=== PATIENT | female | born 1995 | race Caucasian/White ===

== ENCOUNTER 2019-01-21 19:40 | Emergency (ER) | payer OTHER ==
--- NOTE | 2019-01-21 19:46 | PDOC ---
Rapid Medical Evaluation Chief Complaint: Diarrhea Time Seen by Provider: 01/21/19 19:44 Medical Evaluation: Allergies Allergy/AdvReac Type Severity Reaction Status Date / Time No Known Allergies Allergy Verified 04/19/16 19:28 01/21/19 19:44 I have performed a brief in-person evaluation of this patient. The patient presents with a chief complaint of: diarrhea x2 days. 29wks Pertinent physical exam findings: gravid abdomen. dry MM. I have ordered the following: labs, urine The patient will proceed to the ED for further evaluation. 01/21/19 19:45 Discharge Disposition - Diagnosis Diarrhea - Referrals - Patient Instructions - Post Discharge Activity
[2019-01-21 19:47] VITALS: BMI 34.3
[2019-01-21] MEDS ORDERED: LACTATED RINGERS SOLUTION 1,000 ML/1,000 ML INFUS.BAG IV SCH (20:00)
--- NOTE | 2019-01-21 21:06 | PDOC ---
History of Present Illness - General Chief Complaint: Diarrhea Stated Complaint: DIARRHEA Time Seen by Provider: 01/21/19 19:44 History Source: Patient - History of Present Illness Initial Comments: 01/21/19 21:05 23 year old 29 weeks v female c/o watery nonbloody diarrhea x 2 days and today had pelvic pain and pressure to buttocks at 4pm. denies pain at this time. denies feeling contractions, urinary symptoms, abdominal pain, fever/ chills, vomiting. no pmhx Past History - Past Medical History Allergies/Adverse Reactions: Allergies Allergy/AdvReac Type Severity Reaction Status Date / Time No Known Allergies Allergy Verified 01/21/19 19:46 Home Medications: Ambulatory Orders Diphenhydramine HCl [Benadryl -] 25 mg PO Q6H PRN #18 capsule 04/19/16 Asthma: No Cancer: No Cardiac Disorders: No COPD: No Diabetes: No HTN: No Seizures: No Thyroid Disease: No - Suicide/Smoking/Psychosocial Hx Smoking History: Never smoked Have you smoked in the past 12 months: No Number of Cigarettes Smoked Daily: 0 Information on smoking cessation initiated: No Hx Alcohol Use: No Drug/Substance Use Hx: No Substance Use Type: None Hx Substance Use Treatment: No Review of Systems - Review of Systems Able to Perform ROS?: Yes Is the patient limited Syriac proficient: No Constitutional: No: Symptoms Reported, See HPI, Chills, Diaphoresis, Fever, Loss of Appetite, Malaise, Night Sweats, Weakness, Weight Stable, Unintentional Wgt. Loss, Unexplained wgt Loss, Other ABD/GI: Yes: Diarrhea. No: Symptoms Reported, See HPI, Abdominal Distended, Abd. Pain w/ defecation, Blood Streaked Bowels, Constipated, Difficulty Swallowing, Nausea, Poor Appetite, Poor Fluid Intake, Rectal Bleeding, Vomiting , Indigestion, Abdominal cramping, Tarry Stools, Other : Yes: Other (pelvic cramping) *Physical Exam - Vital Signs Last Vital Signs Temp Pulse Resp BP Pulse Ox 98.4 F 91 H 18 121/76 100 01/21/19 19:44 01/21/19 19:44 01/21/19 19:44 01/21/19 19:44 01/21/19 19:44 - Physical Exam General Appearance: Yes: Appropriately Dressed Respiratory/Chest: positive: Lungs Clear, Normal Breath Sounds Cardiovascular: positive: Regular Rhythm, Regular Rate Musculoskeletal: positive: Normal Inspection Extremity: positive: Normal Capillary Refill, Normal Inspection, Normal Range of Motion Integumentary: positive: Other (dry mucosa) Neurologic: positive: Fully Oriented, Alert ED Treatment Course - LABORATORY CBC & Chemistry Diagram: 01/21/19 21:25 01/21/19 21:25 Progress Note - Progress Note Progress Note: A: Diarrhea/ dehydration P: CBC CMP IVF will send to L&D for clearance. Medical Decision Making - Medical Decision Making 01/22/19 00:00 patient cleared for d/c by L&D. patient now feels better.s/p IVF. will d/c home. *DC/Admit/Observation/Transfer Diagnosis at time of Disposition: Pelvic pain affecting in second trimester, antepartum Diarrhea Qualifiers: Diarrhea type: unspecified type Qualified Code(s): R19.7 - Diarrhea, unspecified - Discharge Dispostion Disposition: HOME - Referrals Referrals: Montez Mahmood MD [Staff Physician] - - Patient Instructions Printed Discharge Instructions: Diarrhea Additional Instructions: drink plenty of fluids including gatorade. Follow up with your provider as scheduled. return to labor and delivery if : you start to have contractions Your water breaks You have any vaginal bleeding You do not feel the baby moving - Post Discharge Activity Forms/Work/School Notes: Back to Work
[2019-01-21 21:27] LABS: PH,URINE 6.5 (5.0-8.0); URINE APPEARANCE CLEAR; URINE BILIRUBIN NEGATIVE (NEGATIVE); URINE COLOR YELLOW; URINE GLUCOSE (UA) NEGATIVE (NEGATIVE); URINE KETONE NEGATIVE (NEGATIVE); URINE LEUK ESTERASE NEGATIVE (NEGATIVE); URINE NITRITE NEGATIVE (NEGATIVE); URINE PROTEIN NEGATIVE (NEGATIVE); URINE UROBILINOGEN 0.2 mg/dL (0.2-1.0)
[2019-01-21 21:44] LABS: BASO % 0.6 % (0-2.0); EOS % 1.4 % (0-4.5); HEMOGLOBIN 11.7 GM/dL (10.7-15.3); LYMPH % 19.7 % (8-40); MCHC 33.4 g/dl (32.0-36.0); MEAN CELL VOLUME 86.9 fl (80-96); MONO % 5.6 % (3.8-10.2); NEUT % 72.7 % (42.8-82.8); PLATELET COUNT 202 K/MM3 (134-434); RBC 4.03 M/mm3 (3.60-5.2); RDW 12.9 % (11.6-15.6); WHITE BLOOD COUNT 8.3 K/mm3 (4.0-10.0)
[2019-01-21 22:01] LABS: ALBUMIN 3.1 g/dl (3.4-5.0); BILIRUBIN,TOTAL 0.5 mg/dL (0.2-1); BLOOD UREA NITROGEN 4.6 mg/dL (7-18); CALCIUM 8.6 mg/dL (8.5-10.1); CREATININE 0.5 mg/dL (0.55-1.3); POTASSIUM 3.8 mmol/L (3.5-5.1); TOT PROT 7.3 g/dl (6.4-8.2)
[2019-01-21 22:18] VITALS: BP 111/66; PULSE 72; TEMP 98.1
== END 2019-01-22 00:09 | disposition home or self-care (01) ==
LOC: JER 19:40
PROC: 3E0337Z Introduction of Electrolytic and Water Balance Substance into Peripheral Vein, Percutaneous Approach (ICD-10-PCS; principal; 2019-01-21)
DX: O26.893 Other specified pregnancy related conditions, third trimester (principal); R10.2 Pelvic and perineal pain; E86.0 Dehydration; R19.7 Diarrhea, unspecified; Z3A.29 29 weeks gestation of pregnancy
CPT/HCPCS: 36415; 80053; 81003; 85025; 87086; 96360; 99282-25

== ENCOUNTER 2023-05-05 08:00 | Inpatient (IN) | payer OTHER ==
[2023-05-15] MEDS ORDERED: CITRIC ACID/SODIUM CITRATE 30 ML UNIT-DOSE CUP PO ONE (05:50)
[2023-05-15] MEDS ORDERED: ELECTROLYTE-148 SOLN 500 ML IV ONE (05:50)
[2023-05-15 06:09] VITALS: BMI 39.4
[2023-05-15] MEDS ORDERED: ELECTROLYTE-148 SOLN 1,000 ML IV SCH ×2 (06:20→08:15)
[2023-05-15 06:39] LABS: BASO % 0.5 % (0-2.0); EOS % 0.9 % (0-4.5); HEMATOCRIT 34.3 % (32.4-45.2); HEMOGLOBIN 11.3 GM/dL (10.7-15.3); LYMPH % 26.9 % (8-40); MCH 25.6 pg (25.7-33.7); MCHC 32.8 g/dl (32.0-36.0); MEAN CELL VOLUME 78.1 fl (80-96); MEAN PLT VOLUME 11.7 fl (7.5-11.1); MONO % 5.1 % (3.8-10.2); NEUT % 66.6 % (42.8-82.8); PLATELET COUNT 174 10^3/uL (134-434); WHITE BLOOD COUNT 7.2 K/mm3 (4.0-10.0)
[2023-05-15 06:48] LABS: INR 0.98 (0.83-1.09); PROTHROMBIN TIME (PATIENT) 11.4 SEC (9.7-13.0)
[2023-05-15 06:51] LABS: ACTIVATED PTT 29.5 SECONDS (25.2-36.5)
[2023-05-15 07:35] LABS: BLOOD UREA NITROGEN 6.5 mg/dL (7-18); CALCIUM 8.2 mg/dL (8.5-10.1)
[2023-05-15 07:40] LABS: CREATININE 0.6 mg/dL (0.55-1.3)
[2023-05-15] MEDS ORDERED: morphine SULFATE/PF 1 MG/2 ML (2cc Syringe - QUVA) ONE (07:48)
[2023-05-15] MEDS ORDERED: FENTANYL CITRATE/PF 50 MCG/ML VIAL ONE (07:48)
[2023-05-15] MEDS ORDERED: KETOROLAC TROMETHAMINE 30 MG/1 ML VIAL ONE (07:48)
[2023-05-15] MEDS ORDERED: PHENYLEPHRINE HCL 10 MG/1 ML SINGLE DOSE VIAL ONE (07:48)
[2023-05-15] MEDS ORDERED: ONDANSETRON 4 MG/2 ML VIAL ONE (07:48)
[2023-05-15] MEDS ORDERED: OXYTOCIN 10 UNITS/ML VIAL ONE (07:48)
[2023-05-15] MEDS ORDERED: ceFAZolin SODIUM 1 GM VIAL ONE (07:49)
[2023-05-15] MEDS ORDERED: ACETAMINOPHEN 325 MG TABLET (FP) PO PRN (09:08)
[2023-05-15] MEDS ORDERED: IBUPROFEN 800 MG/8 ML IJ IVPB PRN (09:08)
[2023-05-15] MEDS ORDERED: METHYLERGONOVINE MALEATE 0.2 MG/1 ML AMP IM PRN (09:08)
[2023-05-15] MEDS: OXYTOCIN 20 UNITS in 0.9% NS 20 UNIT/1,000 ML INFUS.BAG IV SCH ×2 (09:10→18:49)
[2023-05-15] MEDS ORDERED: ONDANSETRON 4 MG/2 ML VIAL IVPUSH PRN (09:26)
[2023-05-15] MEDS: FERROUS SO4 325 MG TABLET (FP) PO SCH ×2 (11:59→22:08)
[2023-05-15] MEDS: PRENATAL VITAMINS W/ FOLIC ACID TABLET (FP) PO SCH (11:59)
[2023-05-15] MEDS ORDERED: oxyCODONE HCL 5 MG TABLET PO PRN (21:08)
[2023-05-16 07:37] LABS: BASO % 0.4 % (0-2.0); EOS % 0.3 % (0-4.5); HEMATOCRIT 25.2 % (32.4-45.2); HEMOGLOBIN 8.2 GM/dL (10.7-15.3); LYMPH % 16.7 % (8-40); MCH 25.5 pg (25.7-33.7); MCHC 32.6 g/dl (32.0-36.0); MEAN CELL VOLUME 78.3 fl (80-96); MEAN PLT VOLUME 10.5 fl (7.5-11.1); MONO % 4.9 % (3.8-10.2); NEUT % 77.7 % (42.8-82.8); PLATELET COUNT 165 10^3/uL (134-434); RBC 3.21 M/mm3 (3.60-5.2); RDW 14.1 % (11.6-15.6); WHITE BLOOD COUNT 8.2 K/mm3 (4.0-10.0)
[2023-05-16] MEDS ORDERED: BISACODYL 10 MG SUPP.RECT RC PRN (09:08)
[2023-05-16] MEDS ORDERED: FLU VACCINE (FLULAVAL) PF 60 MCG/0.5 ML SYRINGE 2023-2024 IM ONE (10:00)
[2023-05-16] MEDS: IBUPROFEN 600 MG TABLET (FP) PO PRN (11:31)
[2023-05-16] MEDS: PRENATAL VITAMINS W/ FOLIC ACID TABLET (FP) PO SCH (11:31)
[2023-05-16] MEDS: SIMETHICONE 80 MG TAB.CHEW (FP) PO PRN ×2 (11:32→19:59)
[2023-05-16] MEDS: FERROUS SO4 325 MG TABLET (FP) PO SCH ×2 (11:32→21:16)
[2023-05-17] MEDS: IBUPROFEN 600 MG TABLET (FP) PO PRN ×2 (07:49→20:17)
[2023-05-17] MEDS: SIMETHICONE 80 MG TAB.CHEW (FP) PO PRN ×2 (07:50→20:17)
[2023-05-17] MEDS: PRENATAL VITAMINS W/ FOLIC ACID TABLET (FP) PO SCH (10:03)
[2023-05-17] MEDS: FERROUS SO4 325 MG TABLET (FP) PO SCH ×2 (10:03→21:02)
[2023-05-18] MEDS: SIMETHICONE 80 MG TAB.CHEW (FP) PO PRN (06:00)
[2023-05-18] MEDS: IBUPROFEN 600 MG TABLET (FP) PO PRN (06:00)
[2023-05-18 07:50] LABS: BASO % 0.6 % (0-2.0); EOS % 4.4 % (0-4.5); HEMATOCRIT 22.9 % (32.4-45.2); HEMOGLOBIN 7.5 GM/dL (10.7-15.3); LYMPH % 26.3 % (8-40); MCH 25.9 pg (25.7-33.7); MCHC 32.6 g/dl (32.0-36.0); MEAN CELL VOLUME 79.6 fl (80-96); MEAN PLT VOLUME 9.6 fl (7.5-11.1); MONO % 5.7 % (3.8-10.2); PLATELET COUNT 224 10^3/uL (134-434); RBC 2.88 M/mm3 (3.60-5.2); RDW 13.8 % (11.6-15.6); WHITE BLOOD COUNT 6.2 K/mm3 (4.0-10.0)
[2023-05-18] MEDS: PRENATAL VITAMINS W/ FOLIC ACID TABLET (FP) PO SCH (09:35)
[2023-05-18] MEDS: FERROUS SO4 325 MG TABLET (FP) PO SCH (09:35)
[2023-05-18 10:36] VITALS: BP 118/74; PULSE 62; RESP 18; TEMP 97.3
== END 2023-05-18 12:30 | disposition home or self-care (01) | DRG 540 ==
LOC: JLDR 05-15 05:30 → J3W 05-15 10:30
PROVIDERS: ADMIT Obstetrics & Gynecology; ATTEND Obstetrics & Gynecology
PROC: 10D00Z1 Extraction of Products of Conception, Low, Open Approach (ICD-10-PCS; principal; 2023-05-15)
DX: O34.219 Maternal care for unspecified type scar from previous cesarean delivery (principal); Z3A.39 39 weeks gestation of pregnancy; Z37.0 Single live birth
CPT/HCPCS: 36415; 80048; 85025; 85610; 85730; 86780; 86850; 86900; 86901; 90686; 94010; G0008